=== PATIENT | female | born 1935 | race Caucasian/White ===

== ENCOUNTER 2018-08-21 07:17 | Outpatient (CLI) | payer MEDICARE, BC ==
[~2018-08-21] VITALS: Ht 177.8 cm; Wt 83.2 kg
[2018-08-21 08:13] VITALS: BP 137/68; PULSE 53; TEMP 97.1
[2018-08-21] MEDS ORDERED: EPA FISH OIL1 SGL PO (08:33)
[2018-08-21] MEDS ORDERED: VITAMIN D31000 I1 PO (08:34)
[2018-08-21] MEDS ORDERED: MULTIPLE VITAMI1 CAP PO (08:34)
[2018-08-21] MEDS ORDERED: ZANTAC 150150 MG PO (08:35)
[2018-08-21] MEDS ORDERED: METAMUCIL3.4 GM/DOS PO (08:36)
[2018-08-21] MEDS ORDERED: SYNTHROID0.05 MG/TA PO (08:37)
[2018-08-21] MEDS ORDERED: PRILOSEC 20MG20 MG PO (08:37)
[2018-08-21] MEDS ORDERED: CELEXA10 MG PO (08:38)
[2018-08-21] MEDS ORDERED: GLUCOPHAGE500 MG/TAB PO (08:38)
[2018-08-21] MEDS ORDERED: K-DUR 10 MEQ T10 MEQ PO (08:39)
[2018-08-21] MEDS ORDERED: COUMADIN 2MG2 MG/TAB PO (08:39)
[2018-08-21] MEDS ORDERED: ZOCOR 10MG10 MG PO (08:39)
[2018-08-21] MEDS ORDERED: COUMADIN 5MG5 MG/TAB PO (08:40)
[2018-08-21] MEDS ORDERED: REGLAN 5MG T5 MG/TAB PO (08:41)
[2018-08-21] MEDS ORDERED: HCTZ 25MG TAB25 MG PO (08:42)
[2018-08-21] MEDS ORDERED: COZAAR100 MG PO (08:42)
[2018-08-21] MEDS ORDERED: IMDUR 30MG30 MG/TAB PO (08:42)
[2018-08-21] MEDS ORDERED: TOPROL XL 25MG25 MG PO (08:43)
[2018-08-21] MEDS ORDERED: NORVASC 5MG5 MG/TAB PO (08:43)
[2018-08-21] MEDS ORDERED: TAMBOCOR50 MG PO (08:44)
[2018-08-21 09:45] VITALS: BP 153/90; PULSE 52
== END 2018-08-21 10:02 | disposition home or self-care (01) ==
LOC: COL.CAR 07:17
DX: I48.0 Paroxysmal atrial fibrillation (principal); I10 Essential (primary) hypertension; E78.00 Pure hypercholesterolemia, unspecified; E11.9 Type 2 diabetes mellitus without complications; Z79.82 Long term (current) use of aspirin; Z87.891 Personal history of nicotine dependence; Z82.49 Family history of ischemic heart disease and other diseases of the circulatory system
CPT/HCPCS: 27124; C1764

== ENCOUNTER 2019-05-10 05:50 | Day surgery (SDC) | payer MEDICARE, BC ==
[2019-05-10] VITALS (13 sets, daily range): BP systolic 15–147; BP diastolic 46–85; PULSE 50–70; TEMP 36.4
[~2019-05-10] VITALS: Ht 177.8 cm; Wt 81.8 kg
[~2019-05-10 05:50] MED LIST: CELEXA10 MG PO; COUMADIN 1MG1 MG/TAB PO; COUMADIN 22.5 MG/TAB PO; COZAAR100 MG PO; EPA FISH OIL1 SGL PO; GLUCOPHAGE500 MG/TAB PO; HCTZ 25MG TAB25 MG PO; IMDUR 30MG30 MG/TAB PO; K-DUR 10 MEQ T10 MEQ PO; METAMUCIL3.4 GM/DOS PO; MULTIPLE VITAMI1 CAP PO; NORVASC 5MG5 MG/TAB PO; PRILOSEC 20MG20 MG PO; REGLAN 5MG T5 MG/TAB PO; SYNTHROID0.125 MG/T PO; TAMBOCOR50 MG PO; TOPROL XL 25MG25 MG PO; VITAMIN D31000 I1 PO; ZANTAC 150150 MG PO; ZOCOR 10MG10 MG PO
[2019-05-10 06:52] LABS: MEAN CELL VOLUME 94 fl (80.0-100.0); MEAN CORPUSCULAR HEMOGLOBIN 31 pg (27.0-31.0); MEAN CORPUSCULAR HGB CONC 33 g/dl (33.0-37.0); MEAN PLATELET VOLUME 11.4 fl (7.4-10.4); PLATELET COUNT 174 K/mm3 (130-400); RED BLOOD COUNT 3.83 M/mm3 (4.10-5.30); REDCELL DISTRIBUTION WIDTH-CV 12.7 % (11.5-14.5)
[2019-05-10 06:53] LABS: HEMATOCRIT 35.9 % (37.0-47.0)
[2019-05-10 06:57] LABS: INR 1.1 (0.8-3.0); PROTHROMBIN TIME 12.9 SECONDS (9.7-12.8)
[2019-05-10 07:05] LABS: CALCIUM 9.2 mg/dL (8.4-10.2); CREATININE, serum 0.74 (0.52-1.25); POTASSIUM 4.1 mmol/L (3.4-5.0)
[2019-05-11 03:50] VITALS: BP 130/53; PULSE 60; TEMP 97.5
[2019-05-11 07:20] VITALS: BP 115/49; PULSE 60; PULSE 62; TEMP 97.8
[2019-05-11 07:25] LABS: BASO % 0.3 % (0.0-2.0); EOS % 1.3 % (0-4.0); GRAN # 1.7 (1.4-6.5); HEMOGLOBIN 11.7 g/dl (12.5-16.0); LYMPH # 0.8 (1.2-3.4); LYMPH % 26.4 % (20.0-51.0); MEAN CELL VOLUME 93 fl (80.0-100.0); MEAN CORPUSCULAR HEMOGLOBIN 31 pg (27.0-31.0); MEAN CORPUSCULAR HGB CONC 34 g/dl (33.0-37.0); MEAN PLATELET VOLUME 11.6 fl (7.4-10.4); MONO # 0.4 (0.1-0.6); MONO % 13.7 % (1.7-9.3); PLATELET COUNT 142 K/mm3 (130-400); RED BLOOD COUNT 3.73 M/mm3 (4.10-5.30); REDCELL DISTRIBUTION WIDTH-CV 12.7 % (11.5-14.5)
[2019-05-11 07:37] LABS: HEMATOCRIT 34.7 % (37.0-47.0)
[2019-05-11 07:41] LABS: CALCIUM 8.9 mg/dL (8.4-10.2); CREATININE, serum 0.7 (0.52-1.25); POTASSIUM 4.2 mmol/L (3.4-5.0)
[2019-05-11 11:17] VITALS: BP 100/71; PULSE 63; TEMP 98.3
[2019-05-11] MEDS ORDERED: TOPROL XL100 MG PO ×4 (11:24→11:38)
[2019-05-11] MEDS ORDERED: CEPHALEXIN500 M1 PO ×2 (11:25→11:37)
== END 2019-05-11 13:30 | disposition home or self-care (01) ==
LOC: COL.CAR 05:50 → MEDICAL 11:33 → COL.CAR 05-11 13:30
PROVIDERS: Internal Medicine Cardiovascular Disease; Nurse Practitioner
DX: I48.0 Paroxysmal atrial fibrillation (principal); I49.5 Sick sinus syndrome; I10 Essential (primary) hypertension; K21.9 Gastro-esophageal reflux disease without esophagitis; R73.03 Prediabetes; F41.9 Anxiety disorder, unspecified; I51.7 Cardiomegaly; D68.51 Activated protein C resistance; Z88.8 Allergy status to other drugs, medicaments and biological substances; Z79.84 Long term (current) use of oral hypoglycemic drugs; Z79.01 Long term (current) use of anticoagulants; Z87.891 Personal history of nicotine dependence; Z82.49 Family history of ischemic heart disease and other diseases of the circulatory system; E78.2 Mixed hyperlipidemia
CPT/HCPCS: OP; C1769; C1785; C1894; C1898; J0690; J1644; J2250; J3010; J7030; Q9967

== ENCOUNTER 2021-09-18 15:30 | Inpatient (IN) | payer MEDICARE, BC ==
[~2021-09-18] VITALS: Ht 177.8 cm; Wt 79.6 kg
[~2021-09-18 15:30] MED LIST changes: +CEPHALEXIN500 M1 PO; -MULTIPLE VITAMI1 CAP PO; +SYNTHROID0.075 MG/T PO; -SYNTHROID0.125 MG/T PO; +THERAGRAN TAB1 UDTAB PO; +TOPROL XL100 MG PO
[2021-09-20] MEDS ORDERED: LIPITOR 40MG TA40 MG PO (14:46)
[2021-09-20] MEDS ORDERED: APRESOLINE50 MG PO ×2 (14:47→15:59)
[2021-09-20] MEDS ORDERED: REMERON 15M15 MG/TA1 PO (14:48)
[2021-09-20] MEDS ORDERED: NORVASC 10MG10 MG PO (14:49)
[2021-09-20] MEDS ORDERED: ELIQUIS 5MG PO (14:51)
[2021-09-20] MEDS ORDERED: BUSPAR5 MG PO ×3 (14:53→15:46)
[2021-09-20] MEDS ORDERED: COZAAR100 MG PO (14:58)
[2021-09-20] MEDS ORDERED: TOPROL XL100 MG PO (14:59)
[2021-09-20] MEDS ORDERED: ZOFRAN ODT4 MG PO (15:02)
[2021-09-20] MEDS ORDERED: ASPIRIN 81M81 MG/TA2 PO (15:07)
[2021-09-20] MEDS ORDERED: K-DUR 10 MEQ T10 MEQ PO (15:51)
[2021-09-20 18:00] VITALS: BP 148/66; PULSE 64; TEMP 97.2
--- NOTE | 2021-09-20 18:56 | NUR ---
RECEIVED CHANGE OF SHIFT REPORT FROM DAY SHIFT NURSE.
[2021-09-21 05:29] VITALS: BP 149/65; PULSE 56; TEMP 97.9
--- NOTE | 2021-09-21 07:00 | NUR ---
Report received from JASON Galvin. PT in bed resting, called to assist to bathroom, principal biostatistician assisted, some cueing required but moves well.
--- NOTE | 2021-09-21 07:10 | NUR ---
CHANGE OF SHIFT REPORT GIVEN TO DAY SHIFT NURSE, DEEDEE GOMEZ.
--- NOTE | 2021-09-21 09:09 | NUR ---
Assessment charted. Pt alert and oriented, able to communicate well but speech is quiet and a little slurred. Denies pain, takes pills whole with nectar thickened liquids but does have some delayed swallowing and required some cues to swallow. Resting between disturbances, states she feels tired today but otherwise denies needs, will continue to monitor.
--- NOTE | 2021-09-21 12:41 | NUR ---
SW met with the patient to complete intake, as the patient is new to [facility]. The patient states that she lives in independent living at the [facility]. She reports independence with ADLs and has a cane. The patient's PCP is Dr. April Watkins. She states that she sometimes sees Luz LEW-Delano instead of Dr. Watkins. She receives her medications from [facility]. The patient does not have a DPOA-HC, but she state that she does have one completed and that it designates her three children: Roxanne Hale (ph#[phone], [place]), Edilia ([place]), and Torito ([place]). She states that she is . The patient reports that therapy has been tiring so far. SW to continue to follow.
[2021-09-21 17:31] VITALS: BP 139/60; PULSE 65; TEMP 97.8
--- NOTE | 2021-09-21 18:25 | NUR ---
Pt has set off bed alarm/chair alarm frequently this evening, up and confused. Appears to be having some diffiuclty orienting to where she is and what is going on here. Returned to bed, assisted to re-orient, alamrs on. Will give report to nightshift nurse carlos ram ll resume care.
--- NOTE | 2021-09-21 20:27 | NUR ---
Patient assessed around 1999. Reported some pain to left hip/leg. Given PRN APAP as requested. Ambulated in room and to and from bathroom with one assist with use of gait belt and walker. Unsteady gait at times. Able to change into pajamas independently, and wash face, hands, and brush teeth with one assist for stability while standing. Assisted to bed. Bed alarm is on. Voices no questions, needs, or concerns at this time. In bed with call light within reach. Bed alarm on.
[2021-09-22 04:00] VITALS: BP 128/62; PULSE 59; TEMP 97.7
--- NOTE | 2021-09-22 05:51 | NUR ---
Patient has not been impulsive this shift. Denies pain and discomfort. Voices no questions, needs, or concerns at this time. In bed with call light within reach.
[2021-09-22 06:49] LABS: BASO % 0.2 % (0.0-2.0); EOS # 0.1 K/mm3 (0.0-0.7); EOS % 1.8 % (0-4.0); GRAN # 2.5 K/mm3 (1.4-6.5); GRAN % 57.7 % (42.2-75.2); HEMATOCRIT 37.3 % (37.0-47.0); HEMOGLOBIN 12.5 g/dl (12.5-16.0); LYMPH # 1.1 K/mm3 (1.2-3.4); LYMPH % 24.9 % (20.0-51.0); MEAN CELL VOLUME 97 fl (80.0-100.0); MEAN CORPUSCULAR HEMOGLOBIN 33 pg (27.0-31.0); MEAN CORPUSCULAR HGB CONC 34 g/dl (33.0-37.0); MEAN PLATELET VOLUME 12.5 fl (7.4-10.4); MONO # 0.7 K/mm3 (0.1-0.6); MONO % 14.9 % (1.7-9.3); PLATELET COUNT 147 K/mm3 (130-400); RED BLOOD COUNT 3.84 M/mm3 (4.10-5.30); REDCELL DISTRIBUTION WIDTH-CV 12.4 % (11.5-14.5)
--- NOTE | 2021-09-22 06:50 | NUR ---
Report received from JASON Chun. Patient is sleeping in bed. Call light and bedside table are within reach. Will continue to monitor throughout shift.
[2021-09-22 07:08] LABS: CREATININE, serum 1.15 mg/dL (0.57-1.11); MAGNESIUM 1.7 mg/dL (1.6-2.6); POTASSIUM 3.8 mmol/L (3.5-4.5)
--- NOTE | 2021-09-22 09:30 | NUR ---
Physical therapist reported patient was doing PT and her 02 level dropped to 86% and her pulse dropped to 56 so she brought her back to her room to rest. Patient stated she was exhausted. This nurse went in to check her and she denied pain but stated she was just tired. Patient could hardly keep her eyes open. Will continue to monitor throughout shift.
--- NOTE | 2021-09-22 10:00 | NUR ---
Speech therapist, Barbara, stated she was trying to work with patient and she kept falling asleep. ST Barbara, stated she would come back later. Will continue to monitor patient throughout shift.
--- NOTE | 2021-09-22 12:00 | NUR ---
This nurse was told by [address] who told this nurse patient reported she was nausea and did not want to eat lunch because she could feel the acid in her throat (regurgitating). This nurse texted Dr. Preston and requested a medication to help with her condition.
[2021-09-22 18:30] VITALS: BP 132/61; PULSE 75; TEMP 98.7
--- NOTE | 2021-09-22 21:00 | NUR ---
Patient is resting in bed, alert and oriented x 4, VSS, denies pain, nausea or vomiting. Able to swallow medication. Assissted to comode, weakness but able to move herself. Slurred speach. Assessment completed, medications provided. No further needs at this timec. Call light within reach.
[2021-09-23 05:31] VITALS: BP 138/60; PULSE 67; TEMP 98.2
--- NOTE | 2021-09-23 06:18 | NUR ---
Patient has had a good night. Continues with debility but able to transfer herself to the commode. All needs met. Shift report will be given to dayshift nurse.
--- NOTE | 2021-09-23 06:48 | NUR ---
Report received from JASON Elias. Patient is sleeping in bed. Call light and bedside table are within reach. Will continue to monitor patient throughout shift.
--- NOTE | 2021-09-23 07:57 | NUR ---
Patient self-ambulated to the bathroom. This nurse explained to her she has to use her call light because it is a safety precaution. Patient acknowledged she understood.
--- NOTE | 2021-09-23 14:39 | NUR ---
JAMIE contacted the patient's daughter, February, to review the IPR Team Conference Note. The team plans to re-evaluate the patient next Tuesday. Roxanne is in agreement to the plan. She confirms that the patient lives in an independent living apartment at [facility]. Roxanne reports that her and her sister rotate coming up here to visit the patient. JAMIE then met with the patient and provided her with the IPR Team Conference Notes. The patient is also in agrement to the plan.
[2021-09-23 15:33] VITALS: BP 121/60; PULSE 65; TEMP 98.2
--- NOTE | 2021-09-23 16:58 | NUR ---
Dr. Flores saw patient in reference to r/o depression. Dr. Flores determined patient is depressed and stated she would be changing/readjusting medication.
--- NOTE | 2021-09-23 19:00 | NUR ---
RECEIVED CHANGE OF SHIFT REPORT FROM DAY SHIFT NURSE. DAUGHTER PRESENT VISITING PATIENT. PATIENT DENIES ANY NEEDS DURING REPORT.
--- NOTE | 2021-09-23 19:03 | NUR ---
This nurse spoke with patient's daughter, February, and February stated her mom has been depressed since the patient's and sister six years ago. She also stated her mom will stop eating when she has bouts of depression. This nurse told daughter she can bring food in for her mom if she thinks it will aide in her mother eating.
[2021-09-24 05:17] VITALS: BP 124/52; PULSE 64; TEMP 97.5
--- NOTE | 2021-09-24 07:06 | NUR ---
CHANGE OF SHIFT REPORT GIVEN TO DAY SHIFT NURSE, PENNY GOMEZ. PATIENT RESTING QUIETLY MOST OF NIGHT, DENIED C/O RIGHT HIP DISCOMFORT SINCE REPORTING DISCOMFORT AT START OF SHIFT THAT SUBSIDED WHEN AMBULATING. BED ALARM ON WHEN IN BED WITH CALL LIGHT WITHIN REACH.
--- NOTE | 2021-09-24 10:28 | NUR ---
PT UNABLE TO PARTIPARTE [facility] THERAPY THIS MORNING, REPORT GENERALIZED WEAKNESS DIZZY WHEN STANDING. OTHROSTATIC B/P OBATINED NOTED TO BE LOW. THERAPY HELD AT THIS TIME. DR. HELTON CALLED UNABLE TO ANSWER, MSG LEFT
[2021-09-24 10:34] VITALS: BP 85/52; BP 91/51; PULSE 69; PULSE 73
[2021-09-24 10:41] VITALS: BP 100/54; PULSE 67; TEMP 97.8
[2021-09-24 12:42] LABS: CALCIUM 9.5 mg/dL (8.4-10.2); CREATININE, serum 2.16 mg/dL (0.57-1.11); MAGNESIUM 1.9 mg/dL (1.6-2.6); POTASSIUM 4.9 mmol/L (3.5-4.5)
--- NOTE | 2021-09-24 13:49 | NUR ---
Admission QIM scores were reviewed by the team. Code of 5 chosen for eating was determined by team discussion to be the most usual performance for this patient during the assessment period. Code of 4 chosen for oral hygiene was determined by team discussion to be the most usual performance before interventions for this patient during the assessment period. Code of 3 chosen for toilet hygiene was determined by team discussion to be the most usual performance for this patient during the assessment period. Code of 3 chosen for toileting transfers was determined by team discussion to be the most usual performance for this patient during the assessment period. Code of 5 chosen for putting on/taking off footwear was determined by team discussion to be the most usual performance for this patient during the assessment period. Code of 3 chosen for lying to sitting on side of bed was determined by team discussion to be the most usual performance for this patient during the assessment period. Code of 3 for sit to stand was determined by team discussion to be the most usual performance for this patient during the assessment period. Code of 3 for chair/bed to chair transfers was determined by team discussion to be the most usual performance for this patient during the assessment period. Code of 3 chosen for walk 10 feet was determined by team discussion to be the most usual performance for this patient during the assessment period. Code of 3 chosen for walk 50 feet w/ 2 turns was determined by team discussion to be the most usual performance for this patient during the assessment period. Code of 3 chosen for walk 150 feet was determined by team discussion to be the most usual performance for this patient during the assessment period.--Usha Cintron,
[2021-09-24 16:16] VITALS: BP 90/43; PULSE 71; TEMP 97.7
--- NOTE | 2021-09-24 21:00 | NUR ---
PT RESTING IN BED BUT IMPULSIVE. HAS TRIED SEVERAL TIMES TO GET UP OUT OF BED. BED ALARM SOUNDING. DENIES NEED TO VOID. PT THINKS IT IS MORNING AND IS TIME TO GET UP. ATTEMPTED TO REORIENT.
--- NOTE | 2021-09-25 02:45 | NUR ---
FOUND PATIENT ON FLOOR WITH UNWITNESSED FALL. 2:1 ASSIST TO RETURN TO BED. IV PULLED OUT. NO APPARRENT INJURY. NOTIFIED KAREEM [place]. SEE ORDERS FOR RADIOLOGY. VSS
[2021-09-25 03:00] VITALS: BP 95/52; PULSE 73
--- NOTE | 2021-09-25 03:12 | NUR ---
DAUGHTER DOMI NOTIFIED OF FALL AND PLAN OF CARE.
--- NOTE | 2021-09-25 03:20 | NUR ---
TO CT PER W/C.
--- NOTE | 2021-09-25 03:47 | NUR ---
RETURNED FROM CT. BED ALARM SET. CALL LIGHT IN REACH
[2021-09-25 04:00] VITALS: BP 119/53; PULSE 64; TEMP 98.9
--- NOTE | 2021-09-25 04:24 | NUR ---
PT RESTING. NO DISTRESS.
--- NOTE | 2021-09-25 06:13 | NUR ---
PT CONTINUES RESTING. NO DISTRESS.
[2021-09-25 06:58] LABS: CALCIUM 8.4 mg/dL (8.4-10.2); CREATININE, serum 1.83 mg/dL (0.57-1.11)
--- NOTE | 2021-09-25 14:44 | NUR ---
JAMIE received a phone call from the patient's daughter, February. Roxanne expressed some concerns about not being notified that a psych consult had been ordered and there were going to be changes to her meds. Roxanne reports that she is the patient's advocate and just requests to be contacted with any updates and/or changes. JAMIE notified IPR Director and the patient's RN. JAMIE also inquired about the patient's DPOA-HC. Roxanne confirms that the patient has a DPOA-HC and that it designates the patient's three children: herself, Edilia, and Torito. She reports that the patient's PCP's office may have a copy of the document. JAMIE contacted [facility]. The glue maker bone reports that they do not have a copy of the document. JAMIE then met with the patient to follow up before the weekend. The patient was resting in bed. The patient reports that she is pretty sleepy, but doing good. She had no concerns for SW at this time.
[2021-09-25 16:35] VITALS: BP 133/62; PULSE 65; TEMP 97.3
[2021-09-25 17:48] VITALS: BP 114/61; PULSE 80; TEMP 97.8
--- NOTE | 2021-09-25 20:00 | NUR ---
ASSISTED TO BR WITH ROLLING WALKER. PT MORE ALERT TONIGHT AND LESS CONFUSED. STILL IMPULSIVE. PT VOIDED WITH BM. PT ABLE TO PERFORM OWN TOIELTING HYGIENE. CHANGED CLOTHING WITH ASSIST TO LOWER BODY OVER FEET THEN PT ABLE TO PULL PANTS AN UNDERWEAR UP OVER HIPS. PT ABLE TO CHANGE OWN UPPER BODY CLOTHING HERSELF WITH SET UP ONLY. BACK TO BED. BED ALARM SET. CALL LIGHT IN REACH. REVIEWED CALL LIGHT WITH PT. PT VERBALIZED UNDERSTANDING.
[2021-09-26 05:43] VITALS: BP 150/59; PULSE 62; TEMP 97.6
--- NOTE | 2021-09-26 06:55 | NUR ---
Report recieved from JASON Herman. Patient is sleeping in bed. Call light and bedside table are within reach. Will continue to monitor patient throughout shift.
[2021-09-26 18:00] VITALS: BP 123/86; PULSE 82; TEMP 97.8
--- NOTE | 2021-09-26 19:45 | NUR ---
ASSISTED UP TO [facility]. HAD LG BROWN DIARRHEA. PT REPORTS HAS HAD SEVERAL TODAY. CALLED MANNY POPE. SEE ORDER FOR IMMODIUM. - GIVEN.
--- NOTE | 2021-09-26 22:46 | NUR ---
GAVE IMODIUM FOR LOOSES TOOL AND TYLENOL FOR GEN ACHES.
[2021-09-27 05:17] VITALS: BP 161/69; PULSE 67; TEMP 97.4
--- NOTE | 2021-09-27 06:46 | NUR ---
Report received from JASON Herman. Patient is sleeping in bed. Call light and bedside table are within reach. Will continue to monitor patient throughout shift.
--- NOTE | 2021-09-27 08:36 | NUR ---
Patient stated several times she was tired and did not complete ADLs. Patient also stated she saw someone sleeping on the couch but did not know who it was.
[2021-09-27 18:00] VITALS: BP 154/62; PULSE 68; TEMP 97.9
--- NOTE | 2021-09-27 19:10 | NUR ---
IV INFILTRATED TO RT ARM. NOTIFIED MANNY SMITH. LEAVE IV OUT FOR NOW.
--- NOTE | 2021-09-27 20:32 | NUR ---
ASSISTED TO BR. VOIDED. ABLE TO MANAGE CLOTHING AND HYGIENE PER SELF. PT REQUIRES STEADYING AT TIMES. PT RUSHES . NEEDS CUING TO SLOW DOWN. SLURRED SPEECH. GRASPS EQUALLY STRONG.
[2021-09-28 05:28] VITALS: BP 176/70; PULSE 52; TEMP 98.6
--- NOTE | 2021-09-28 06:07 | NUR ---
PT REPORTS BURNING WITH VOID AND LOW PELVIC DISCOMFORT. NEW ORDER RECEIVED FOR UA.
[2021-09-28 06:59] LABS: CALCIUM 8.6 mg/dL (8.4-10.2); CREATININE, serum 0.84 mg/dL (0.57-1.11); MAGNESIUM 1.5 mg/dL (1.6-2.6); POTASSIUM 3.8 mmol/L (3.5-4.5)
[2021-09-28 12:21] LABS: COLLECTION METHOD CLEAN CATCH
[2021-09-28 13:02] LABS: MUCOUS Present /lpf; PH 5 (5-8); SQUAMOUS EPITHELIAL 0-2 /hpf; URINE APPEARANCE Cloudy; URINE BACTERIA Moderate /hpf; URINE BILIRUBIN Negative (NEGATIVE); URINE BLOOD Negative (NEGATIVE); URINE COLOR Yellow; URINE GLUCOSE Negative (NEGATIVE); URINE KETONE Negative (NEGATIVE); URINE LEUKOCYTE ESTERASE 3+ (NEGATIVE); URINE NITRATE Negative (NEGATIVE); URINE PROTEIN(semi-quant) 1+ (NEGATIVE); URINE UROBILINOGEN Negative (NEGATIVE)
[2021-09-28 16:45] VITALS: BP 186/85; PULSE 88; TEMP 98.5
--- NOTE | 2021-09-28 19:00 | NUR ---
RECEIVED CHANGE OF SHIFT REPORT FROM DAY SHIFT NURSE.
[2021-09-29 05:57] VITALS: BP 173/70; PULSE 82; TEMP 98.1
[2021-09-29 07:03] VITALS: BP 157/62
--- NOTE | 2021-09-29 07:15 | NUR ---
CHANGE OF SHIFT REPORT GIVEN TO DAY SHIFT NURSE, PENNY GOMEZ.
--- NOTE | 2021-09-29 16:07 | NUR ---
SW met with the patient to follow up. The patient was resting. The patient reports that she has been having some diarrhea. She asked for some medicine for this. JAMIE updated the RN. The patient had no other questions for SW at this time.
[2021-09-29 17:09] VITALS: BP 156/65; PULSE 62; TEMP 98.5
--- NOTE | 2021-09-29 18:29 | NUR ---
PT REPORT DIAHREA, IMODIUM GIVEN WITH RELIEF CALL LIGHT WITHIN REACH
--- NOTE | 2021-09-29 18:36 | NUR ---
URINE CULTURE GREW NEGATIVE RODS ROMAN POPE CALLED AND NOTOFIED ORDERS RECEIVED FOR ANTIBIOTIC.DAUGHTER FEBRUARY UPDATED
--- NOTE | 2021-09-29 18:59 | NUR ---
RECEIVED CHANGE OF SHIFT REPORT FROM DAY SHIFT NURSE. BED ALARM ON WITH CALL LIGHT WITHIN REACH.
--- NOTE | 2021-09-29 20:52 | NUR ---
C/O EAR PAIN AND WANTING MED FOR DIARRHEA, SEE MAR FOR MEDS GIVEN.
--- NOTE | 2021-09-30 03:04 | NUR ---
PATIENT SET OFF BED ALARM, FOUND OUT OF BED, WALKING TOWARDS BATHROOM, SBA X1 STAFF WITH PATIENT AMBULATING TO BATHROOM, ENCOURAGED TO USE WW, REMINDED PATIENT TO USE CALL LIGHT TO BATHROOM TRIPS D/T FALL RISK WITH PATIENT STATING SHE WOULD NOT FALL. PATIENT BACK TO BED WITHOUT INCIDENT. BED ALARM ON WITH CALL LIGHT WITHIN REACH.
[2021-09-30 05:48] VITALS: BP 168/59; PULSE 66; TEMP 97.6
--- NOTE | 2021-09-30 07:26 | NUR ---
Report received from JASON Galvin. Patient is sleeping in bed and denies pain at this time. Call light and bedside table are within reach. Will continue to monitor patient throughout shift.
--- NOTE | 2021-09-30 07:34 | NUR ---
CHANGE OF SHIFT REPORT GIVEN TO DAY SHIFT NURSE, KAMERON GOMEZ.
--- NOTE | 2021-09-30 16:13 | NUR ---
JAMIE contacted the patient's daughter, Roxanne, to review the IPR Team Conference Note. The team is recommending SNF upon discharge and they have set a discharge date for this Tuesday, 10/02. Roxanne is in agreement to the plan. She reports that her and her family would prefer [facility]. A patient/family meeting has also been set for tomorrow at 1300. JAMIE notified . Roxanne reports that her and her siblings will be available by phone. The patient's brother and sister plan to come up tomorrow to see the patient. JAMIE then contacted Madisyn at [facility]. Madisyn reports that they are not taking on any new residents at this time. JAMIE met with the patient to update and present the Team Conference Notes. Roxanne was on speaker phone. Roxanne reports that they would prefer [facility] in [place] now. [facility] requires an application to be completed before admission. JAMIE placed the application in the patient's room and informed Roxanne of this. Roxanne reports that her brother will be coming up to the hospital this evening and he can complete the form. JAMIE contacted and faxed a referral to [facility]. Awaiting screen.
[2021-09-30 18:00] VITALS: BP 142/63; PULSE 61; TEMP 98.7
--- NOTE | 2021-09-30 19:56 | NUR ---
FAMILY HERE VISITING. TAKING H20 W/O DIFFICULTY. NO NEEDS AT THIS TIME.
--- NOTE | 2021-10-01 00:57 | NUR ---
ASSISTED PT TO BR WITH WHEELED WALKER. VERY SLEEPY AND UNSTEADY. NEEDS CUING FOR SAFETY. BACK TO BED. CALL LIGHT IN REACH. BED ALARM SET.
[2021-10-01 04:53] VITALS: BP 161/55; PULSE 62; TEMP 98
--- NOTE | 2021-10-01 06:57 | NUR ---
Report received from JASON Herman. Patient is awake and resting comfortably in bed. Call light and bedside table are within reach. Will continue to monitor patient throughout shift.
--- NOTE | 2021-10-01 11:25 | NUR ---
The patient's family completed the application for [facility]. JAMIE notified and emailed the application back to Jac at [facility].
--- NOTE | 2021-10-01 15:30 | NUR ---
JAMIE attended the patient/family meeting. The patient's daughters: Roxanne and Edilia were on speaker phone. PT/OT/ST discussed the patient's progress so far and how they recommend SNF upon discharge with a discharge tomorrow. Roxanne and Edilia are in agreement to the plan. Edilia reports that she plans on transporting the patient to [facility]. The team answered all questions. Jac, at [facility], reports that they are able to accept the patient tomorrow. They ask for an earlier transport time. JAMIE updated Roxanne. Roxanne reports that her sister plans to be here at 1000 tomorrow. JAMIE to continue to follow.
[2021-10-01] MEDS ORDERED: OMNICEF 300MG300 MG PO (15:51)
[2021-10-01] MEDS ORDERED: TAMBOCOR50 MG PO (15:52)
[2021-10-01] MEDS ORDERED: ELIQUIS 5MG PO (15:52)
[2021-10-01] MEDS ORDERED: LIPITOR 40MG TA40 MG PO (15:53)
[2021-10-01] MEDS ORDERED: NORVASC 10MG10 MG PO (15:53)
[2021-10-01] MEDS ORDERED: TOPROL XL100 MG PO (15:53)
[2021-10-01] MEDS ORDERED: ASPIRIN 81M81 MG/TA2 PO (15:53)
[2021-10-01] MEDS ORDERED: ZOLOFT 100MG100 MG PO (15:54)
[2021-10-01] MEDS ORDERED: K-DUR 10 MEQ T10 MEQ PO (15:54)
[2021-10-01] MEDS ORDERED: ZOFRAN ODT4 MG PO (15:55)
[2021-10-01] MEDS ORDERED: MIRALAX PA17 GM/Dose PO (15:55)
[2021-10-01] MEDS ORDERED: PRILOSEC 20MG20 MG PO (15:55)
[2021-10-01] MEDS ORDERED: THERAGRAN TAB1 UDTAB PO (15:57)
[2021-10-01] MEDS ORDERED: VITAMIN D31000 I1 PO (15:57)
[2021-10-01] MEDS ORDERED: SYNTHROID0.075 MG/T PO (15:57)
[2021-10-01 17:54] VITALS: BP 156/53; PULSE 64; TEMP 97.4
--- NOTE | 2021-10-01 20:05 | NUR ---
ASSISTED PT TO BR WITH WHEELED WALKER. NEEDED CUING FOR SAFETY. SL UNSTEADY AT TIMES. PT ABLE TO CHANGE TO NIGHT CLOTHING PER SELF. TOILETING HYGIENE PERFORMED PER SELF. NEEDED STEADYING WITH TOILET TRANSFER. BACK TO BED. CALL LIGHT IN REACH. BED ALARM SET.
[2021-10-02 04:46] VITALS: BP 154/64; PULSE 71; TEMP 98.3
--- NOTE | 2021-10-02 07:23 | NUR ---
REPORT REICEVED. NO COMPLAINTS OF PAIN OR DYSPNEA. NO SIGNS OF DISTRESS. CALL LIGHT WITHIN REACH
[2021-10-02 07:59] LABS: CREATININE, serum 0.85 mg/dL (0.57-1.11); POTASSIUM 3.8 mmol/L (3.5-4.5)
[2021-10-02] MEDS ORDERED: TYLENOL 325MG325 MG PO (08:01)
[2021-10-02] MEDS ORDERED: COZAAR100 MG PO (08:01)
[2021-10-02] MEDS ORDERED: APRESOLINE50 MG PO (08:01)
[2021-10-02] MEDS ORDERED: MEGACE 40MG40 MG/TAB PO (08:02)
--- NOTE | 2021-10-02 09:30 | NUR ---
PT ASSESSED. NO COMPLAINTS OF PAIN OR DYSPNEA. NO SIGNS OF DISTRESS NOTED. PT DID HAVE SOME TROUBLE SWALLOWING HER PILLS THIS AM. COUGHING AND SNEEZING NOTED. WAS ABLE TO SUCESSFULLY CLEAR AIRWAY. REPORTS "I'VE NEVER CHOKED LIKE THAT BEFORE" ENCOURAGED PT TO SWALLOW PILLS ONE AT A TIME OR IN SMALLER BATCHES TO AVOID SIMILIAR SITUATIONS IN THE FUTURE. PT VERBALIZES UNDERSTANDING. CALL LIGHT IN REACH. BED ALARM ON.
--- NOTE | 2021-10-02 09:53 | NUR ---
The patient is to discharge today, 10/02, to [facility] for a skilled stay. Transportation has been scheduled tentatively around 1000, via private vehicle by the patient's daughter. JAMIE updated the patient's RN. JAMIE notified and faxed orders to Jac at [facility]. No additional needs at this time.
--- NOTE | 2021-10-02 11:06 | NUR ---
PT DISCHARGED INTO DAUGHTERS CARE. DAUGHTER HAS DISCHARGE PACKET TO TAKE TO FACILITY. REPORT CALLED TO DOMI AT THE [facility] ALL QUESTIONS ANSWERED.
--- NOTE | 2021-10-02 14:57 | NUR ---
Discharge QIM scores were reviewed by the team. Code of 6 chosen for oral hygiene was determined by team discussion to be the most usual performance for this patient during the assessment period. Code of 6 chosen for toilet hygiene was determined by team discussion to be the most usual performance for this patient during the assessment period. Code of 4 chosen for toilet transfers was determined by team discussion to be the most usual performance for this patient during the assessment period. Code of 4 chosen for showering was determined by team discussion to be the most usual performance for this patient during the assessment period. Code of 6 chosen for upper body dressing was determined by team discussion to be the most usual performance for this patient during the assessment period. Code of 5 chosen for lower body dressing was determined by team discussion to be the most usual performance for this patient during the assessment period. Code of 6 for lying to sitting side of bed was determined by team discussion to be the most usual performance for this patient during the assessment period. Code of 4 for chair/bed to chair transfers was determined by team discussion to be the most usual performance for this patient during the assessment period. Code of 6 chosen for sit to stand was determined by team discussion to be the most usual performance for this patient during the assessment period.
== END 2021-10-02 11:07 | DRG 57 ==
LOC: SURG 09-23 17:45
PROVIDERS: Physician Assistant; Student in an Organized Health Care Education/Training Program; ADMIT Internal Medicine
DX: I69.354 Hemiplegia and hemiparesis following cerebral infarction affecting left non-dominant side (principal); E46 Unspecified protein-calorie malnutrition; N39.0 Urinary tract infection, site not specified; N17.9 Acute kidney failure, unspecified; I69.392 Facial weakness following cerebral infarction; I69.322 Dysarthria following cerebral infarction; I69.391 Dysphagia following cerebral infarction; I48.0 Paroxysmal atrial fibrillation; K21.9 Gastro-esophageal reflux disease without esophagitis; I10 Essential (primary) hypertension; R13.10 Dysphagia, unspecified; E03.9 Hypothyroidism, unspecified; E11.9 Type 2 diabetes mellitus without complications; E78.5 Hyperlipidemia, unspecified; B96.1 Klebsiella pneumoniae [K. pneumoniae] as the cause of diseases classified elsewhere; F32.A Depression, unspecified; F41.9 Anxiety disorder, unspecified; R26.89 Other abnormalities of gait and mobility; Z73.6 Limitation of activities due to disability; Z79.01 Long term (current) use of anticoagulants; Z79.82 Long term (current) use of aspirin; Z79.899 Other long term (current) drug therapy; Z96.649 Presence of unspecified artificial hip joint; Z95.0 Presence of cardiac pacemaker; Z95.818 Presence of other cardiac implants and grafts; Z88.8 Allergy status to other drugs, medicaments and biological substances
CPT/HCPCS: 99222-AI; 99231-AI; 99232-AI; 99233-AI; 99239; J7030